=== PATIENT | female | born 1975 | race Caucasian/White ===

== ENCOUNTER 2016-10-28 13:10 | Emergency (ER) | payer OTHER | END 2016-10-28 15:00 | disposition home or self-care (01) | LOC: ER 13:10 | DX: J44.9 Chronic obstructive pulmonary disease, unspecified (principal); J84.9 Interstitial pulmonary disease, unspecified; H92.09 Otalgia, unspecified ear; J32.9 Chronic sinusitis, unspecified; F17.210 Nicotine dependence, cigarettes, uncomplicated; Z79.899 Other long term (current) drug therapy | CPT/HCPCS: 71020; 87070; 87880; 99284-25 ==